=== PATIENT | male | born 1955 | race Caucasian/White ===

== ENCOUNTER 2018-12-09 18:46 | Emergency (ER) | payer OTHER ==
[~2018-12-09] VITALS: Ht 180.3 cm; Wt 77.1 kg
[2018-12-09 23:00] VITALS: BP 153/76
== END 2018-12-09 21:17 | disposition home or self-care (01) ==
LOC: ER 18:46
DX: S52.501A Unspecified fracture of the lower end of right radius, initial encounter for closed fracture (principal); J44.9 Chronic obstructive pulmonary disease, unspecified; Z88.0 Allergy status to penicillin; Z88.6 Allergy status to analgesic agent; W18.39XA Other fall on same level, initial encounter; Y93.89 Activity, other specified; Y92.89 Other specified places as the place of occurrence of the external cause; Y99.8 Other external cause status

== ENCOUNTER 2019-03-14 16:51 | Emergency (ER) | payer OTHER ==
[~2019-03-14] VITALS: Ht 177.8 cm; Wt 72.6 kg
[~2019-03-14 16:51] MED LIST: NORCO 5-325 TA1 EAC1 PO; ROXICODONE5 M2 PO
[2019-03-14] MEDS ORDERED: METHADONE HCL 110 MG PO (16:54)
[2019-03-14 18:39] VITALS: BP 129/77
== END 2019-03-14 18:46 | disposition home or self-care (01) ==
LOC: ER 16:51
DX: S01.01XA Laceration without foreign body of scalp, initial encounter (principal); S51.811A Laceration without foreign body of right forearm, initial encounter; S41.011A Laceration without foreign body of right shoulder, initial encounter; J44.9 Chronic obstructive pulmonary disease, unspecified; Z88.6 Allergy status to analgesic agent; Z88.0 Allergy status to penicillin; Z87.891 Personal history of nicotine dependence; W18.39XA Other fall on same level, initial encounter; Y92.009 Unspecified place in unspecified non-institutional (private) residence as the place of occurrence of the external cause; Y93.89 Activity, other specified; Y99.8 Other external cause status

== ENCOUNTER 2019-03-25 13:47 | Emergency (ER) | payer OTHER ==
[~2019-03-25] VITALS: Ht 172.7 cm; Wt 68.0 kg
[~2019-03-25 13:47] MED LIST changes: +METHADONE HCL 110 MG PO
[2019-03-25 14:00] VITALS: BP 92/44
== END 2019-03-25 14:30 | disposition home or self-care (01) ==
LOC: ER 13:47
DX: S01.01XD Laceration without foreign body of scalp, subsequent encounter (principal); J44.9 Chronic obstructive pulmonary disease, unspecified; Z88.6 Allergy status to analgesic agent; Z88.0 Allergy status to penicillin; Z87.891 Personal history of nicotine dependence; X58.XXXD Exposure to other specified factors, subsequent encounter

== ENCOUNTER 2019-09-04 02:15 | Emergency (ER) | payer OTHER ==
[~2019-09-04] VITALS: Ht 177.8 cm; Wt 63.5 kg
[2019-09-04] MEDS ORDERED: TRAZODONE HCL50 MG PO (02:28)
[2019-09-04] MEDS ORDERED: LISINOPRIL10 MG PO (02:28)
[2019-09-04] MEDS ORDERED: SYMBICORT160 MCG/4. INH (02:29)
[2019-09-04] MEDS ORDERED: PANTOPRAZOLE SO40 M1 PO (02:29)
[2019-09-04] MEDS ORDERED: PREDNISONE 5 MG5 M1 PO (02:29)
[2019-09-04] MEDS ORDERED: PROAIR HFA8.5 GM INH (02:29)
[2019-09-04] MEDS ORDERED: SINGULAIR 10 MG10 M1 PO (02:30)
[2019-09-04] MEDS ORDERED: SPIRIVA18 MCG INH (02:30)
[2019-09-04] MEDS ORDERED: SERTRALINE HCL100 MG PO (02:30)
[2019-09-04] MEDS ORDERED: ALPRAZOLAM 0.0.25 M1 PO (02:30)
[2019-09-04 03:01] LABS: CALCIUM 8.9 mg/dL (8.5-10.1); CREATININE 0.8 mg/dL (0.7-1.3); POTASSIUM 4.1 mmol/L (3.5-5.1)
[2019-09-04 03:04] LABS: HEMATOCRIT 39.9 % (42.0-52.0); HEMOGLOBIN 12.4 gm/dL (14.0-18.0); MCH 30.4 pg (26.0-34.0); MCHC 31.2 g/dL (28.0-37.0); MCV 97.4 fL (80.0-100.0); PLATELET COUNT 224 thou/uL (150-400); RDW 14.8 % (10.5-14.5); WBC 6.3 thou/uL (4.0-11.0)
[2019-09-04 03:24] LABS: ABSOLUTE NEUTROPHILS 2.6 thou/uL (1.4-8.2); ATYPICAL LYMPHS 3 %
[2019-09-04 03:25] LABS: LARGE PLATELETS RARE
[2019-09-04 03:45] VITALS: BP 127/81
== END 2019-09-04 03:45 | disposition home or self-care (01) ==
LOC: ER 02:15
PROVIDERS: Emergency Medicine
DX: S81.811A Laceration without foreign body, right lower leg, initial encounter (principal); X58.XXXA Exposure to other specified factors, initial encounter; Y93.89 Activity, other specified; Y92.89 Other specified places as the place of occurrence of the external cause; Y99.8 Other external cause status; J44.9 Chronic obstructive pulmonary disease, unspecified; Z88.0 Allergy status to penicillin; Z88.8 Allergy status to other drugs, medicaments and biological substances; Z87.891 Personal history of nicotine dependence

== ENCOUNTER 2019-09-16 23:39 | Emergency (ER) | payer OTHER ==
[~2019-09-16] VITALS: Ht 177.8 cm; Wt 65.8 kg
[~2019-09-16 23:39] MED LIST changes: +ALPRAZOLAM 0.0.25 M1 PO; +LISINOPRIL10 MG PO; +PANTOPRAZOLE SO40 M1 PO; +PREDNISONE 5 MG5 M1 PO; +PROAIR HFA8.5 GM INH; +SERTRALINE HCL100 MG PO; +SINGULAIR 10 MG10 M1 PO; +SPIRIVA18 MCG INH; +SYMBICORT160 MCG/4. INH; +TRAZODONE HCL50 MG PO
[2019-09-17 00:33] LABS: HEMATOCRIT 31.7 % (42.0-52.0); HEMOGLOBIN 10.1 gm/dL (14.0-18.0); MCH 30.7 pg (26.0-34.0); RBC 3.3 mil/uL (4.50-6.00); RDW 14.4 % (10.5-14.5); WBC 4.7 thou/uL (4.0-11.0)
[2019-09-17 00:47] LABS: PROTIME 10.4 Seconds (9.3-11.4)
[2019-09-17] MEDS ORDERED: [UNRECOGNIZED DRUG - OTHER] NASAL (01:18)
[2019-09-17 01:47] VITALS: BP 137/74
== END 2019-09-17 01:50 | disposition home or self-care (01) ==
LOC: ER 23:39
PROVIDERS: Emergency Medicine Emergency Medical Services
DX: R04.0 Epistaxis (principal); J44.9 Chronic obstructive pulmonary disease, unspecified; F17.210 Nicotine dependence, cigarettes, uncomplicated; Z79.899 Other long term (current) drug therapy

== ENCOUNTER 2019-11-15 14:16 | Emergency (ER) | payer OTHER ==
[~2019-11-15] VITALS: Ht 177.8 cm; Wt 59.0 kg
[~2019-11-15 14:16] MED LIST changes: +[UNRECOGNIZED DRUG - OTHER] NASAL
[2019-11-15] MEDS ORDERED: AZITHROMYCIN500 MG PO (14:32)
[2019-11-15 16:25] VITALS: BP 129/99
== END 2019-11-15 16:26 | disposition home or self-care (01) ==
LOC: ER 14:16
DX: R04.0 Epistaxis (principal); J44.9 Chronic obstructive pulmonary disease, unspecified; Z79.899 Other long term (current) drug therapy; Z88.6 Allergy status to analgesic agent; Z88.0 Allergy status to penicillin; Z87.891 Personal history of nicotine dependence; Z99.81 Dependence on supplemental oxygen

== ENCOUNTER 2019-12-15 01:55 | Emergency (ER) | payer OTHER ==
[~2019-12-15] VITALS: Ht 177.8 cm; Wt 63.5 kg
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
[~2019-12-15 01:55] MED LIST changes: +AZITHROMYCIN500 MG PO
[2019-12-15] MEDS ORDERED: VITAMIN C500 M2 PO (02:12)
[2019-12-15] MEDS ORDERED: FLEXERIL PO (02:13)
[2019-12-15] MEDS ORDERED: CALCIUM CARBON500 MG PO (02:13)
[2019-12-15] MEDS ORDERED: DEXTROMETHORPHAN/GUA PO (02:15)
[2019-12-15] MEDS ORDERED: IBU800 MG PO (02:16)
[2019-12-15] MEDS ORDERED: [UNRECOGNIZED DRUG - OTHER] PO (02:18)
[2019-12-15] MEDS ORDERED: MUPIROCIN1 GM TOP (02:19)
[2019-12-15] MEDS ORDERED: MAGNESIUM250 M1 PO (02:20)
[2019-12-15] MEDS ORDERED: ONDANSETRON ODT4 MG PO (02:21)
[2019-12-15] MEDS ORDERED: AFRIN15 ML INH (02:25)
[2019-12-15] MEDS ORDERED: TRANSDERM-SCOP1 EACH (02:26)
[2019-12-15 04:06] VITALS: BP 126/75
== END 2019-12-15 07:10 | disposition home or self-care (01) ==
LOC: ER 01:55
DX: R09.81 Nasal congestion (principal); J44.9 Chronic obstructive pulmonary disease, unspecified; Z87.891 Personal history of nicotine dependence; Z79.899 Other long term (current) drug therapy; Z79.2 Long term (current) use of antibiotics; Z88.0 Allergy status to penicillin; Z88.8 Allergy status to other drugs, medicaments and biological substances; Z91.018 Allergy to other foods